=== PATIENT | male | born 1960 | race Caucasian/White ===

== ENCOUNTER 2022-06-30 08:04 | Day surgery (SDC) | payer OTHER, SELFPAY ==
[2022-06-30] VITALS (16 sets, daily range): BP systolic 91–162; BP diastolic 62–100; PULSE 52–79; RESP 16–20; TEMP 36.1–36.6; O2SAT 92–98; BMI 36.8
[2022-06-30] MEDS: SODIUM CHLORIDE 0.9 % (FLUSH) 10 ML SYRINGE IVF (08:20)
[2022-06-30] MEDS: LACTATED RINGERS 1000 ML 1,000 ML 100 ML IV (08:20)
[2022-06-30] MEDS: CEFAZOLIN 2 GM INJ IVP (10:18)
--- NOTE | 2022-06-30 10:47 | W.ANESCHARGE ---
Anesthesia Charges Start Date/Time Anesthesia Start Date: 06/30/22 Anesthesia Start Time: 10:01 Stop Date/Time Anesthesia Stop Date: 06/30/22 Anesthesia Stop Time: 12:01
--- NOTE | 2022-06-30 11:20 | SUR.OPER ---
Medication Record is not functioning in [facility]. 20mL 0.25% Bupivicaine plain given at intraoperatively at the operative site by Dr. Chawla on 06/30/22 at 1023.
[2022-06-30] MEDS: LACTATED RINGERS 1000 ML 1,000 ML 50 ML IV (12:09)
--- NOTE | 2022-06-30 12:10 | W.ANESCHARGE ---
Anesthesia Charges Start Date/Time Anesthesia Start Date: 06/30/22 Anesthesia Start Time: 10:01 Stop Date/Time Anesthesia Stop Date: 06/30/22 Anesthesia Stop Time: 12:01
[2022-06-30] MEDS: OXYCODONE 5 MG TABLET PO (12:52)
--- NOTE | 2022-06-30 13:43 | P.GSOP_ITS ---
Operative Note Date of procedure: 06/30/22 Pre-op diagnosis: Umbilical hernia with incarcerated fat Post-op diagnosis: Same Type of Procedure: Open umbilical hernia repair with placement of mesh Indications: Patient is a 62-year-old male who presented to clinic with a symptomatic large umbilical hernia. Risks and benefits of operative intervention were discussed a t length the patient. Risks included, but were not limited to: Bleeding, infection, risk of damage to surrounding structures, risk of recurrence and possible need for additional procedures. We also reviewed the expected recovery, specifically no lifting greater than 20 lb for 6 weeks. All questions and concerns were addressed with patient agreeing to proceed. Procedure Description: After discussing the risks and benefits of the procedure, the patient signed informed consent.? The operative site was marked and the patient was brought to the operating room and placed on the operating table in supine position.? Care was taken to pad the patient's pressure points.?? The patient was then intubated by anesthesia.?? The operative site was then prepped and draped in the usual sterile fashion.? A time-out was then performed. A large incarcerated umbilical hernia with stretched redundant skin was noted. This was unable to be easily reduced. A curvilinear incision was made at the umbilicus on the left lateral aspect. Dissection was carried down into the subcutaneous tissue using cautery. The hernia sac was encountered and care was taken to not enter it. Dissection was taken down to the fascia, and the umbilical stock was carefully dissected off of the hernia sac. Once the hernia sac was dissected out circumferentially, it was reduced. The fascial edges were then cleared circumferentially. The hernia was 4 cm in size and so the decision was made to use a piece of mesh. A preperitoneal pocket was created using a combination of blunt dissection and cautery. Hemostasis appeared adequate. Once the posterior fascia was clear, a piece of large Ventralex ST hernia mesh was placed in the preperitoneal space with care to ensure that it laid flat. This was secured into place using 2 0 PDS interrupted sutures. The tails were then trimmed and the fascial opening was closed with a running 0 Vicryl. Local anesthetic was injected into the fascia, skin and subcutaneous tissues. The redundant umbilical skin was resected. The umbilicus was reapproximated to the fascia. The skin was then closed with running absorbable suture. A sterile dressing was then applied. ? The patient was then woken and transported to the recovery area in stable condition. ? The patient tolerated the procedure well. Findings: Large umbilical hernia with redundant skin. Repaired with mesh. Anesthesia: GETA Surgeon: Dorothea Chawla MD Estimated blood loss (mL): 20 Condition: stable Disposition: same day
--- NOTE | 2022-06-30 14:19 | SUR.PHASEII ---
due to low bp, rstarted fluids, giving a 500 cc bolus
== END 2022-06-30 14:44 | disposition home or self-care (01) ==
PROVIDERS: PCP Internal Medicine; Visit Provider Surgery
PROC: (CPT 49594; principal; 2022-06-30 09:30)
DX: K42.0 Umbilical hernia with obstruction, without gangrene (principal)
CPT/HCPCS: 49594; 00830; A4467; A9270; C1781; J0330; J0690; J1100; J2250; J2370; J2405; J2704; J2710; J3010; J3490; J7120